=== PATIENT | male | born 1990 | race Caucasian/White ===

== ENCOUNTER 2018-08-27 09:46 | Emergency (ER) | payer OTHER ==
[~2018-08-27] VITALS: Ht 182.9 cm; Wt 80.3 kg
[2018-08-27 10:11] VITALS: BP 125/82
--- NOTE | 2018-08-27 10:11 | NUR ---
PT BIBSELF C/O SORE THROAT X 4 DAYS. PT IS ON ANTIBIOTICS BUT WORRIED ABOUT SWELLING. PT AOX4. WILL CONTINUE TO MONITOR.
[2018-08-27] MEDS ORDERED: ACETAMINOPHEN 325 MG TABLET PO ONE (10:30)
[2018-08-27] MEDS ORDERED: ACETAMINOPHEN 325 MG TABLET ONE (10:31)
== END 2018-08-27 11:47 | disposition home or self-care (01) ==
LOC: ER 09:52
DX: J02.9 Acute pharyngitis, unspecified (principal)
CPT/HCPCS: 87070; 87880; 99283; A4606; Z7610; 86403-TC